=== PATIENT | female | born 1975 | race Caucasian/White ===

== ENCOUNTER 2018-08-04 12:54 | Day surgery (SDC) | payer BC ==
[2018-08-04 13:44] VITALS: BMI 25.0
[2018-08-04] MEDS ORDERED: ACETAMINOPHEN 1000 MG/100 ML VIAL (NON FORMULARY) IVPB ONE (17:45)
[2018-08-04] MEDS ORDERED: PROPOFOL 20 ML ONE (18:03)
[2018-08-04] MEDS ORDERED: MIDAZOLAM HCL 2 MG/2 ML SINGLE DOSE VIAL ONE (18:04)
[2018-08-04] MEDS ORDERED: ceFAZolin SODIUM 1 GM VIAL ONE (18:11)
[2018-08-04] MEDS ORDERED: ceFAZolin SODIUM 1 GM VIAL IVPB ONE (18:11)
[2018-08-04] MEDS ORDERED: DEXAMETHASONE SOD PHOSPHATE 4 MG/1 ML VIAL ONE (18:14)
[2018-08-04] MEDS ORDERED: morphine SULFATE 4 MG/ML VIAL IVPUSH PRN (18:42)
[2018-08-04] MEDS ORDERED: ONDANSETRON 4 MG/2 ML VIAL IVPUSH PRN (18:46)
[2018-08-04] MEDS ORDERED: oxyCODONE HCL 5 MG TABLET PO PRN (18:46)
--- NOTE | 2018-08-04 18:47 | OP ---
Operative Note - Note: Operative Date: 08/04/18 Pre-Operative Diagnosis: left ureteral stone Operation: left ureteroscopic laser lithoripsy and stent exchange Findings: impacted left mid ureteral stone Post-Operative Diagnosis: Same as Pre-op Surgeon: Kyle Sheikh Anesthesia: General
[2018-08-04] MEDS ORDERED: ACETAMINOPHEN INJECTION 100 ML IVPB ONE (18:48)
[2018-08-04] MEDS ORDERED: ceFAZolin 2 GRAM PREMIX BAG IVPB SCH (22:00)
[2018-08-04] MEDS: CEFAZOLIN 2 GM/D5W 2 GM/50 ML ML IVPB SCH (22:50)
[2018-08-04] MEDS: DEXTROSE 5%-0.45% SALINE 1,000 ML IV SCH (23:14)
[2018-08-05] MEDS: DEXTROSE 5%-0.45% SALINE 1,000 ML IV SCH (03:11)
[2018-08-05] MEDS: CEFAZOLIN 2 GM/D5W 2 GM/50 ML ML IVPB SCH (05:54)
[2018-08-05 11:21] VITALS: BP 110/65; PULSE 76; TEMP 98.2
--- NOTE | 2018-08-05 12:05 | OP ---
DATE OF OPERATION: 08/04/2018 PREOPERATIVE DIAGNOSIS: Obstructing left ureteral calculus. POSTOPERATIVE DIAGNOSIS: Obstructing left ureteral calculus. PROCEDURE: Cystoscopy, left ureteroscopic laser lithotripsy, stent replacement. ANESTHESIA: General, MEAGHAN Gomes FINDINGS: Impacted stone in the left mid-ureter. DRAINS: A 6 x 24 double-J ureteral stent. SURGEON: Kyle Sheikh MD ESTIMATED BLOOD LOSS: None. PREOPERATIVE INDICATIONS: The patient is a 42-year-old female who was admitted earlier in the week for an obstructing left ureteral stone. Stent was placed. Patient has returned with discomfort, persistent hydronephrosis, and KUB evidence that the stent has migrated distally. She comes to the OR. OPERATION: Patient brought to the OR, placed on the table in the supine position, given general anesthesia and IV antibiotics, and placed in the modified lithotomy position. The groin was prepped and draped sterilely. Cystoscopy was performed. The stent was seen emerging from the left ureteral orifice and was pulled out. A wire was passed up into the left kidney. A semi-rigid ureteroscope was then passed into the left kidney without difficulty to the area of the stone. The stone was impacted into the ureter. Using the holmium laser fiber, stone was broken up into small pieces of sand. No other stones were seen along the length of the ureter. A 6 x 24 double-J ureteral stent was placed over a wire under fluoroscopic guidance. One loop was seen in the kidney, one loop in the bladder. Bladder was emptied. The patient was woken up. Justo [id number]
--- NOTE | 2018-08-08 14:04 | PATH ---
Surgical Pathology Report Patient Name: ROYER SANDHU [facility]. Rec. #: [id number] /Age/Gender: 1975 (Age: 42) / F Account: [id number] Location: [facility] SURGICAL Taken: 08/04/2018 Received: 08/07/2018 Reported: 08/08/2018 Physicians: Kyle Sheikh M.D. Specimen(s) Received OLD LEFT URETERAL STENT Clinical History Left ureteral stones Final Diagnosis URETERAL STENT, LEFT, REMOVAL: URETERAL STENT. MACROSCOPIC DIAGNOSIS. Electronically Signed June Sanderson M.D. Gross Description Received fresh "left ureteral stent" is a light blue tube consistent with a ureteral stent which measures 30 cm in length and 0.1 cm in diameter. No soft tissue present, for gross examination only. MLSZ/08/07/2018 sanml/08/07/2018
== END 2018-08-05 13:01 | disposition home or self-care (01) ==
LOC: JASU-SURG 12:54 → J6S 20:52 → JASU-SURG 08-05 13:01
PROVIDERS: ATTEND Urology
PROC: 0TF78ZZ Fragmentation in Left Ureter, Via Natural or Artificial Opening Endoscopic (ICD-10-PCS; principal; 2018-08-04 16:00)
PROC: 0T778DZ Dilation of Left Ureter with Intraluminal Device, Via Natural or Artificial Opening Endoscopic (ICD-10-PCS; 2018-08-04 16:00)
DX: N20.1 Calculus of ureter (principal)
CPT/HCPCS: 76000-TC-FY; 84703; 88300-TC; 94760; J0131